=== PATIENT | female | born 1945 | race Caucasian/White ===

== ENCOUNTER → 2016-09-03 | Outpatient (CLI) | payer MEDICARE, OTHER | LOC: HEART 5 08:56 | DX: J44.9 Chronic obstructive pulmonary disease, unspecified (principal); I25.10 Atherosclerotic heart disease of native coronary artery without angina pectoris; R94.2 Abnormal results of pulmonary function studies; Z72.0 Tobacco use | CPT/HCPCS: 94010 ==

== ENCOUNTER → 2020-09-27 | Outpatient (CLI) | payer MEDICARE, OTHER ==
[~2020-09-27] MED LIST: FLEXERIL 10 MG10 MG PO; K-DUR TAB 20 M20 MEQ PO; LODINE CAP 300300 MG PO
== END ==
LOC: KOH-I 14:21
DX: M25.562 Pain in left knee (principal); M17.12 Unilateral primary osteoarthritis, left knee
CPT/HCPCS: 73562

== ENCOUNTER → 2020-12-29 | Outpatient (CLI) | payer MEDICARE, OTHER | LOC: LAB 09:39 | DX: D72.829 Elevated white blood cell count, unspecified (principal); R91.8 Other nonspecific abnormal finding of lung field | CPT/HCPCS: 36415; 71046 ==

== ENCOUNTER → 2021-03-17 | Outpatient (CLI) | payer MEDICARE, OTHER | LOC: MAMO 13:20 | DX: Z12.31 Encounter for screening mammogram for malignant neoplasm of breast (principal) | CPT/HCPCS: 77063; 77067 ==

== ENCOUNTER → 2021-03-22 | Outpatient (CLI) | payer MEDICARE, OTHER | LOC: KOH-I 03-14 10:30 | DX: Z00.00 Encounter for general adult medical examination without abnormal findings (principal); F17.210 Nicotine dependence, cigarettes, uncomplicated; R91.8 Other nonspecific abnormal finding of lung field | CPT/HCPCS: 71271 ==

== ENCOUNTER → 2021-03-29 | Outpatient (CLI) | payer MEDICARE, OTHER | LOC: MAMO 10:06 | DX: R92.8 Other abnormal and inconclusive findings on diagnostic imaging of breast (principal) | CPT/HCPCS: 77065; G0279 ==

== ENCOUNTER → 2021-05-22 | Outpatient (CLI) | payer MEDICARE, OTHER | LOC: HEART 5 07:35 | DX: I25.118 Atherosclerotic heart disease of native coronary artery with other forms of angina pectoris (principal); R06.02 Shortness of breath | CPT/HCPCS: 78452; A9502; J2785 ==

== ENCOUNTER → 2021-12-05 | Outpatient (CLI) | payer MEDICARE, OTHER ==
[~2021-12-05] MED LIST changes: +AMLODIPINE BESY10 MG PO; +CHLORTHALIDONE25 MG PO; +CRESTOR40 MG PO; +DEXILANT60 MG PO; +EYE; +FENOFIBRATE134 MG PO; +FLONASE; +GLUCOPHAGE 500500 MG PO; +MEMANTINE HCL E21 MG PO; +NITRO; +PLAVIX75 MG PO; +PROAIR HFA; +SYNTHROID75 MCG PO; +TOPROL XL50 MG PO; +TRAMADOL HCL50 MG PO; +TYLENOL EXTRA500 MG PO; +VITAMIN D325 MC6 PO; +[UNRECOGNIZED DRUG - OTHER]
[2021-12-05 14:18] LABS: HEMOGLOBIN 15.1 gm/dl (12.3-15.3); RED BLOOD COUNT 5.36 M/UL (4.00-5.10); WHITE BLOOD COUNT 7.7 K/UL (4.5-11.0)
== END ==
LOC: OPSV2 12:30 → EDSTATUS 12:30 → OPSV2 12:40
PROVIDERS: Orthopaedic Surgery
DX: Z01.818 Encounter for other preprocedural examination (principal); M17.11 Unilateral primary osteoarthritis, right knee
CPT/HCPCS: 36415; 71046; 80048; 83036; 85025; 85652; 86140; 93005

== ENCOUNTER → 2021-12-07 | Outpatient (CLI) | payer MEDICARE, OTHER | LOC: LAB 09:53 | PROVIDERS: Nurse Practitioner Family | DX: E87.6 Hypokalemia (principal) | CPT/HCPCS: 36415; 80048 ==

== ENCOUNTER → 2021-12-18 | Outpatient (CLI) | payer MEDICARE, OTHER ==
[~2021-12-18] MED LIST changes: +CYCLOBENZAPRINE10 MG PO; +ELIQUIS2.5 MG PO; -EYE; +FLONASE ALLER15.8 ML; +MIRALAX17 GM PO; -NITRO; +NITROGLYCERIN0.4 MG SL; +OXYCODON-ACETA1 EAC1 PO; +PRESERVISION A1 EACH PO; -PROAIR HFA; +PROAIR HFA8.5 GM INH; +ZOFRAN 4 MG TAB4 MG PO; -[UNRECOGNIZED DRUG - OTHER]
== END ==
LOC: LAB 09:16
PROVIDERS: Orthopaedic Surgery
DX: Z01.812 Encounter for preprocedural laboratory examination (principal)
CPT/HCPCS: 36415; 80048; 86850; 86900; 86901

== ENCOUNTER 2021-12-19 05:49 | Day surgery (SDC) | payer MEDICARE, OTHER ==
[~2021-12-19] VITALS: Ht 154.9 cm; Wt 76.7 kg
[~2021-12-19 05:49] MED LIST changes: -CYCLOBENZAPRINE10 MG PO; -ELIQUIS2.5 MG PO; -FLONASE ALLER15.8 ML; -OXYCODON-ACETA1 EAC1 PO; -ZOFRAN 4 MG TAB4 MG PO
[2021-12-19] MEDS ORDERED: FLONASE ALLER15.8 ML (06:48)
--- NOTE | 2021-12-19 11:56 | NUR ---
MEERA BUITRAGOE APPLIED TO LEFT LEG.
[2021-12-19] MEDS ORDERED: VITAMIN D325 MC6 PO (11:59)
[2021-12-20 03:18] LABS: HEMOGLOBIN 11.1 gm/dl (12.3-15.3); RED BLOOD COUNT 3.8 M/UL (4.00-5.10); WHITE BLOOD COUNT 12.2 K/UL (4.5-11.0)
[2021-12-20] MEDS ORDERED: OXYCODON-ACETA1 EAC1 PO (11:38)
[2021-12-20] MEDS ORDERED: ELIQUIS2.5 MG PO (11:39)
[2021-12-20] MEDS ORDERED: ZOFRAN 4 MG TAB4 MG PO (11:40)
[2021-12-20] MEDS ORDERED: CYCLOBENZAPRINE10 MG PO (11:40)
== END 2021-12-20 14:24 | disposition home or self-care (01) ==
LOC: OR 05:49 → M/S 11:15 → OR 14:15 → EDSTATUS 14:15 → OR 12-20 14:24
PROVIDERS: Orthopaedic Surgery
DX: M17.11 Unilateral primary osteoarthritis, right knee (principal); I12.9 Hypertensive chronic kidney disease with stage 1 through stage 4 chronic kidney disease, or unspecified chronic kidney disease; E11.22 Type 2 diabetes mellitus with diabetic chronic kidney disease; N18.9 Chronic kidney disease, unspecified; E78.5 Hyperlipidemia, unspecified; I25.10 Atherosclerotic heart disease of native coronary artery without angina pectoris; I25.2 Old myocardial infarction; E03.9 Hypothyroidism, unspecified; K21.9 Gastro-esophageal reflux disease without esophagitis; F32.A Depression, unspecified; F17.210 Nicotine dependence, cigarettes, uncomplicated; Z95.5 Presence of coronary angioplasty implant and graft; Z88.8 Allergy status to other drugs, medicaments and biological substances; Z79.84 Long term (current) use of oral hypoglycemic drugs; Z79.899 Other long term (current) drug therapy
CPT/HCPCS: 36415; 73560; 80048; 82962; 85027; 97110-GP-CQ; 97116-GP-CQ; 97161; 97166; 97530; 97535; C1713; C1776; J0690; J1100; J1885; J2001; J2250; J2274; J2405; J2704; J2710; J2795; J3370; J7050

== ENCOUNTER 2021-12-23 19:01 | Emergency (ER) | payer MEDICARE, OTHER ==
[~2021-12-23 19:01] MED LIST changes: +CYCLOBENZAPRINE10 MG PO; +ELIQUIS2.5 MG PO; +FLONASE ALLER15.8 ML; +OXYCODON-ACETA1 EAC1 PO; +ZOFRAN 4 MG TAB4 MG PO
[2021-12-23 20:07] LABS: HEMOGLOBIN 9.3 gm/dl (12.3-15.3); RED BLOOD COUNT 3.26 M/UL (4.00-5.10); WHITE BLOOD COUNT 7.9 K/UL (4.5-11.0)
[2021-12-23 20:37] LABS: BUN/CREATININE RATIO 10 (0-10)
[2021-12-23] MEDS ORDERED: K-TAB ER20 MEQ PO (22:46)
== END 2021-12-23 23:24 | disposition home or self-care (01) ==
LOC: ER1 19:01
PROVIDERS: Physician Assistant
DX: R50.9 Fever, unspecified (principal); E87.6 Hypokalemia; Z96.651 Presence of right artificial knee joint; I25.10 Atherosclerotic heart disease of native coronary artery without angina pectoris; E78.5 Hyperlipidemia, unspecified; I11.9 Hypertensive heart disease without heart failure; E11.9 Type 2 diabetes mellitus without complications; Z79.84 Long term (current) use of oral hypoglycemic drugs
CPT/HCPCS: 71045; 73562; 73700; 80053; 81001; 82550; 82553; 83605; 84484; 85025; 86140; 87040; 87077; 87086; 87186; 93005; 99285

== ENCOUNTER 2022-02-26 16:50 | Inpatient (IN) | payer MEDICARE, OTHER ==
[~2022-02-26] VITALS: Ht 160 cm; Wt 68.9 kg
[~2022-02-26 16:50] MED LIST changes: +K-TAB ER20 MEQ PO
[2022-02-26 19:03] LABS: HEMOGLOBIN 13.2 gm/dl (12.3-15.3); RED BLOOD COUNT 4.74 M/UL (4.00-5.10); WHITE BLOOD COUNT 8.5 K/UL (4.5-11.0)
[2022-02-26 19:39] LABS: BUN/CREATININE RATIO 13 (0-10)
[2022-02-27] MEDS ORDERED: DEXILANT60 MG PO (11:17)
[2022-02-27] MEDS ORDERED: FENOFIBRATE134 MG PO (11:19)
[2022-02-27] MEDS ORDERED: CRESTOR40 MG PO (11:27)
[2022-02-27] MEDS ORDERED: HYDROXYZINE HCL25 MG PO (11:30)
== END 2022-02-28 13:28 | disposition home or self-care (01) | DRG 641 ==
LOC: ER1 16:50 → CDU 20:57 → M/S 20:57
PROVIDERS: Family Medicine; Physician Assistant; ADMIT Internal Medicine
DX: E87.6 Hypokalemia (principal); E11.9 Type 2 diabetes mellitus without complications; I25.10 Atherosclerotic heart disease of native coronary artery without angina pectoris; I10 Essential (primary) hypertension; F01.50 Vascular dementia, unspecified severity, without behavioral disturbance, psychotic disturbance, mood disturbance, and anxiety; M19.90 Unspecified osteoarthritis, unspecified site; J44.9 Chronic obstructive pulmonary disease, unspecified; E78.00 Pure hypercholesterolemia, unspecified; K21.9 Gastro-esophageal reflux disease without esophagitis; E83.42 Hypomagnesemia; E83.52 Hypercalcemia; N28.9 Disorder of kidney and ureter, unspecified; E03.9 Hypothyroidism, unspecified; M06.9 Rheumatoid arthritis, unspecified; Z96.651 Presence of right artificial knee joint; Z95.5 Presence of coronary angioplasty implant and graft; Z90.49 Acquired absence of other specified parts of digestive tract; Z82.49 Family history of ischemic heart disease and other diseases of the circulatory system; Z80.3 Family history of malignant neoplasm of breast
CPT/HCPCS: 36415; 71045; 80048; 80053; 82550; 82553; 82962; 83735; 84484; 85025; 93005; 94760; 99284; J1650; J3475; J3480

== ENCOUNTER → 2022-03-20 | Outpatient (CLI) | payer MEDICARE, OTHER ==
[~2022-03-20] VITALS: Ht 154.9 cm; Wt 70.8 kg
[~2022-03-20] MED LIST changes: +HYDROXYZINE HCL25 MG PO
== END ==
LOC: OPSV 12:20
DX: E83.42 Hypomagnesemia (principal)
CPT/HCPCS: 96365; 96366; J3475